=== PATIENT | female | born 1990 | race African-American/Black ===

== ENCOUNTER 2020-01-21 09:19 | Emergency (ER) | payer OTHER ==
[~2020-01-21] VITALS: Ht 177.8 cm; Wt 99.8 kg
[2020-01-21 09:39] VITALS: BP 152/87
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
[2020-01-21] MEDS ORDERED: Ketorolac 60mg Inj IM ONE (09:45)
[2020-01-21] MEDS ORDERED: Ketorolac 30mg Inj ONE (09:48)
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
--- NOTE | 2020-01-21 10:23 | NUR ---
ED Nurse Note: Pt taken to Ct via wc.
--- NOTE | 2020-01-21 10:56 | NUR ---
ED Nurse Note: Pt rerturned from CT.
[2020-01-21] MEDS ORDERED: NORCO 5-325 TA1 EAC1 ORAL (12:02)
[2020-01-21] MEDS ORDERED: IBUPROFEN600 M1 ORAL (12:02)
[2020-01-21 12:15] VITALS: BP 138/84
--- NOTE | 2020-01-21 12:15 | NUR ---
ED Nurse Note: Pt cleared by health care Provider for discharge. DC instructions/prescription was given and explained to pt and verbalized understanding of teachings. All medical deviecs such as ID band removed. Pt is AAO x4, ambulatory and left with all personal belongings.
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
== END 2020-01-21 12:15 | disposition home or self-care (01) ==
LOC: EMR 09:38
DX: S09.90XA Unspecified injury of head, initial encounter (principal); S29.012A Strain of muscle and tendon of back wall of thorax, initial encounter; V43.52XA Car driver injured in collision with other type car in traffic accident, initial encounter; Y92.410 Unspecified street and highway as the place of occurrence of the external cause; R07.9 Chest pain, unspecified; E03.9 Hypothyroidism, unspecified
CPT/HCPCS: 70450; 70486; 71250; 72128; 81025; 96372; Z7502; 99284

== ENCOUNTER 2020-01-22 14:47 | Emergency (ER) | payer OTHER ==
[~2020-01-22] VITALS: Ht 177.8 cm; Wt 97.5 kg
[~2020-01-22 14:47] MED LIST: IBUPROFEN600 M1 ORAL; NORCO 5-325 TA1 EAC1 ORAL
[2020-01-22 15:13] VITALS: BP 146/87
--- NOTE | 2020-01-22 15:14 | NUR ---
ED Nurse Note:pt. came with possible STD
[2020-01-22] MEDS ORDERED: Bicillin LA 2.4MMU/4ML SYR IM ONE (15:15)
[2020-01-22] MEDS ORDERED: Azithromycin 250mg tab ORAL ONE (15:15)
[2020-01-22] MEDS ORDERED: Lidocaine 1% MPF 10mg/ml 5ml INJ ONE (15:15)
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
[2020-01-22 16:40] VITALS: BP 146/87
--- NOTE | 2020-01-22 16:40 | NUR ---
ED Nurse Note: Pt cleared by health care Provider for discharge. DC instruction was given and explained to pt and verbalized understanding of teachings. All medical deviecs such as ID band removed. Pt is AAO x4, ambulatory and left with all personal belongings.
== END 2020-01-22 16:40 | disposition home or self-care (01) ==
LOC: EMR 16:10
DX: Z20.2 Contact with and (suspected) exposure to infections with a predominantly sexual mode of transmission (principal); E03.9 Hypothyroidism, unspecified
CPT/HCPCS: 96372; 96374; J0696; Q0144; Z7502; 99284

== ENCOUNTER 2020-06-11 09:04 | Emergency (ER) | payer OTHER ==
[~2020-06-11] VITALS: Ht 177.8 cm; Wt 102.1 kg
[2020-06-11 09:34] VITALS: BP 120/80
[2020-06-11] MEDS ORDERED: cefTRIAXone 1 GM in NS 55 ML IVPB ONE (09:45)
--- NOTE | 2020-06-11 09:45 | Emergency Room Report ---
History of Present Illness General Chief Complaint: General Complaint Source: Patient Present Illness HPI Patient is a 29-year-old female presents for increased palpitations. Reports of increased heart was beating fast. States that she had previous episodes of this in the past and had previous history of hypothyroidism. Intermittent episodes over the past few days. Denies any fever. Reportedly additionally had possible STD exposure. Denies any vaginal sores. Reports having some increased foul smell. Denies any fevers. Denies any abdominal pain. Patient states that she had not been on any thyroid medication recently. 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 Patient History Past Medical History: see triage record Now: No Reviewed Nursing Documentation: PMH: Agreed; PSxH: Agreed Nursing Documentation-PMH Hx Cardiac Problems: Yes - hypothyroidism Review of Systems All Other Systems: negative except mentioned in HPI Physical Exam Vital Signs Date Time Temp Pulse Resp B/P (MAP) Pulse Ox O2 Delivery O2 Flow Rate FiO2 06/11/20 09:34 98.2 88 18 120/80 (93) 98 Room Air Sp02 EP Interpretation: reviewed, normal General Appearance: normal inspection, well appearing, no apparent distress, a lert, GCS 15 Head: atraumatic ENT: normal ENT inspection, hearing grossly normal, normal voice Neck: normal inspection, full range of motion, supple, no bony tend Respiratory: normal inspection, lungs clear, normal breath sounds, no respiratory distress, no retraction, no wheezing Cardiovascular #1: regular rate, rhythm, no edema Gastrointestinal: normal inspection, normal bowel sounds, non tender, soft, no guarding, no hernia Genitourinary: no CVA tenderness Musculoskeletal: normal inspection, back normal, normal range of motion Neurologic: alert, motor strength/tone normal, 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 Differential diagnosis include was not limited to electrolyte abnormality, hypothyroidism, arrhythmia among others. Laboratory testing was ordered to patient's medical complaints. She was given IV antibiotics due to history of possible STD exposure. Patient's exam is essentially unremarkable and she does not have any significant cardiac history. Last Vital Signs Date Time Temp Pulse Resp B/P (MAP) Pulse Ox O2 Delivery O2 Flow Rate FiO2 06/11/20 09:34 98.2 88 18 120/80 (93) 98 Room Air Referrals: NON PHYSICIAN (PCP) Shiv Macias MD Jun 11, 2020 09:45
[2020-06-11] MEDS ORDERED: DOXYCYCLINE MO100 MG ORAL (09:56)
[2020-06-11 10:06] LABS: BILIRUBIN, URINE NEGATIVE (NEGATIVE); GLUCOSE, URINE (UA) NEGATIVE (NEGATIVE); KETONES,URINE NEGATIVE (NEGATIVE); LEUKOCYTE ESTERASE ,URINE 1+ (NEGATIVE); NITRITE,URINE NEGATIVE (NEGATIVE); PH,URINE 7 (4.5-8.0); PROTEIN,URINE 1+ (NEGATIVE); UROBILINOGEN,URINE 1 MG/DL (0.0-1.0)
--- NOTE | 2020-06-11 10:08 | NUR ---
Patient presents to [facility] ER for increased palpitations and possible STD. Denies vaginal sores, abdominal pain but reports having some increased foul smelling discharge. Reports that she has a history of hyperthyroidism but has not been on thyroid medication.
[2020-06-11 10:10] LABS: APPEARANCE,URINE SLIGHTLY CLOUDY; COLOR,URINE YELLOW
[2020-06-11 10:49] LABS: BASOPHILS % (AUTO) 1.1 % (0.0-2.0); EOSINOPHILS % (AUTO) 2.9 % (0.0-3.0); HEMATOCRIT 40.9 % (37.0-47.0); HEMOGLOBIN 12.4 G/DL (12.0-16.0); LYMPHOCYTES % (AUTO) 31.2 % (20.0-45.0); MEAN CORPUSCULAR VOLUME 86 FL (80-99); MONOCYTES % (AUTO) 9.7 % (1.0-10.0); NEUTROPHILS % (AUTO) 55.1 % (45.0-75.0); PLATELET COUNT 210 K/UL (150-450); RED BLOOD COUNT 4.73 M/UL (4.20-5.40); RED CELL DISTRIBUTION WIDTH 13.5 % (11.6-14.8)
[2020-06-11 10:58] LABS: ANION GAP 8 mmol/L (5-15); BLOOD UREA NITROGEN 9 mg/dL (7-18); CALCIUM 9.3 MG/DL (8.5-10.1); CARBON DIOXIDE 27 MMOL/L (21-32); CHLORIDE 110 MMOL/L (98-107); CREATININE 0.8 MG/DL (0.55-1.30); POTASSIUM 4.1 MMOL/L (3.5-5.1); SODIUM 144 MMOL/L (136-145)
[2020-06-11 11:03] LABS: ALANINE AMINOTRANSFERASE 18 U/L (12-78); ALBUMIN 3.8 G/DL (3.4-5.0); ALBUMIN/GLOBULIN RATIO 1.3 (1.0-2.7); ALKALINE PHOSPHATASE 57 U/L (46-116); ASPARTATE AMINO TRANSFERASE 14 U/L (15-37); BILIRUBIN,TOTAL 0.6 MG/DL (0.2-1.0)
--- NOTE | 2020-06-14 15:34 | Cardiology Report ---
APPROVED REPORT EKG Measurement Heart [id number] <Conclusion> Normal sinus rhythm Normal ECG
== END 2020-06-11 12:00 | disposition home or self-care (01) ==
LOC: EMR 09:13
DX: R00.2 Palpitations (principal); E03.9 Hypothyroidism, unspecified
CPT/HCPCS: 36415; 80053; 81001; 81003; 81025; 84443; 84484; 85025; 87086; 87181; 93005; 96365; J0696; Z7502; 99284